=== PATIENT | female | born 1965 | race Caucasian/White ===

== ENCOUNTER 2018-01-24 10:57 | Day surgery (SDC) | payer BC ==
[~2018-01-24 10:57] MED LIST: ACETAMINOPHEN 1000 MG/100 ML IVPB; LIDOCAINE 2% (SDV) 5 ML INJ
[2018-01-24] MEDS ORDERED: PROPOFOL 100 ML (13:00)
[2018-01-24] MEDS ORDERED: MIDAZOLAM 1 MG/ML 2 ML INJ (13:00)
[2018-01-24] MEDS ORDERED: ONDANSETRON 4 MG INJ (13:06)
[2018-01-24] MEDS ORDERED: CEFAZOLIN 1 GM INJ (13:06)
[2018-01-24] MEDS ORDERED: DEXAMETHASONE 4 MG/ML 1 ML INJ (13:06)
[2018-01-24] MEDS ORDERED: KETOROLAC 30 MG INJ (13:15)
[2018-01-24] MEDS: KETOROLAC 30 MG INJ IV (13:45)
[2018-01-24] MEDS ORDERED: EPHEDrine SULFATE 50 MG/5 ML SYG IV (14:00)
[2018-01-24] MEDS ORDERED: ALBUTEROL 0.083% (NEB) 2.5 MG/3 ML AMP HHN (14:00)
[2018-01-24] MEDS ORDERED: DIPHENHYDRAMINE 50 MG INJ IV (14:00)
[2018-01-24] MEDS ORDERED: METOCLOPRAMIDE 10 MG INJ IV (14:00)
[2018-01-24] MEDS ORDERED: hydrALAzine 20 MG INJ IV (14:00)
[2018-01-24] MEDS ORDERED: LABETALOL HCL 20MG INJ IV (14:00)
[2018-01-24] MEDS ORDERED: OXYCODONE/ACETAMINOPHEN (5/325) TAB PO ×2 (14:00)
[2018-01-24] MEDS ORDERED: MEPERIDINE 25 MG INJ IV (14:00)
[2018-01-24] MEDS ORDERED: FENTAnyl 50 MCG/ML VIAL IV ×3 (14:00)
[2018-01-24] MEDS ORDERED: MIDAZOLAM 1 MG/ML 2 ML INJ IV (14:00)
[2018-01-24] MEDS ORDERED: ONDANSETRON 4 MG INJ IV (14:00)
== END 2018-01-24 15:05 | disposition home or self-care (01) ==
LOC: SDS 10:57
DX: N95.0 Postmenopausal bleeding (principal); N72 Inflammatory disease of cervix uteri
CPT/HCPCS: 58120; 88305